=== PATIENT | male | born 1975 | race Caucasian/White ===

== ENCOUNTER 2017-03-10 09:54 | Emergency (ER) | payer MEDICAID ==
--- NOTE | 2017-03-10 10:18 | ED Physician Chart ---
Chief Complaint/HPI - Patient Information Date Seen:: 03/10/17 Time Seen:: 10:08 Chief Complaint:: R hand swelling for 4 days. History of Present Illness:: C/O increasing R hand swelling after he injected himself in R hand with methamphetamine about 4 days ago. No fever. Taking po well without N/V/D. No mentation change. No dyspnea. No other bodily pain or discomfort. Allergies:: Allergies Allergy/AdvReac Type Severity Reaction Status Date / Time No Known Allergies Allergy Verified 03/10/17 10:03 Vitals:: Vital Signs - 8 hr 03/10/17 10:00 Temp 97.3 F HR 110 RR 16 BP 140/91 O2 Sat % 97 Historian:: Patient Family MD/PCP:: Dr. Barajas LMP:: N/A Review:: Nurse's Note Reviewed Review of Systems - Review of Systems General/Constitutional: No fever, No chills, No weight loss, Edema (R hand swelling.), No loss of appetite Skin: No bruising, Other (R hand redness with swelling.) Head: No headache, No light-headedness Eyes: No loss of vision, No pain, No diplopia ENT: No earache, No nasal drainage, No sore throat, No tinnitus Neck: No neck pain, No swelling, No thyromegaly, No stiffness, No mass noted Cardio Vascular: No chest pain, No palpitations, No orthopnea Pulmonary: No SOB, No cough, No sputum, No wheezing GI: No nausea, No vomiting, No diarrhea, No pain G/U: No dysuria, No frequency, No hematuria Musculoskeletal: Other (R hand pain with erythema and swelling for 4 days.) Endocrine: No polyuria, No polydipsia Psychiatric: Prior psych history, No depression, No anxiety, No suicidal ideation, No homicidal ideation, No auditory hallucination, No visual hallucination Hematopoietic: No bruising, No lymphadenopathy Allergic/Immuno: No urticaria, No angioedema Neurological: No syncope, No focal symptoms, No weakness, No paresthesia, No headache, No seizure, No dizziness, No confusion, No vertigo Past Medical History - Past Medical History Past Medical History: HTN Family History: None Social History: Smoker (one ppd. Pt has been informed about health risks associated with chronic tobacco use and has been advised to stop. Pt has been encourage to enroll in a smoking cessation program. Pt acknowledges understanding.), Alcohol (occasional), Illicit Drug Use (Methamphetamine. Pt has been informed about health risks associated with illicit drug use and has been advised to quit. Pt has been encouraged to enroll in a drug rehab program. Pt acknowledges understanding.), , Other (lives with his significant other.) Employment:: unemployed. Surgical History: None Psychiatricy History: Bipolar Medication: Reviewed Family Medical History - Family Member Mother Other Medical History: denies family medical hx Physical Exam - Physical Examination General/Constitutional: Awake, Well-developed, well-nourished, Alert, No distress, GCS 15, Non-toxic appearing, Ambulatory Other Gen/Cons comments:: Breathes comfortably, speaks clearly, interacts normally, and ambulates without assistance without difficulty. Head: Atraumatic Eyes: Lids, conjuctiva normal, PERRL, EOMI Skin: Well hydrated, No lymphadenopathy Other Skin comments:: see also Extremities exam ENMT: External ears, nose nl, Nasal exam nl, Lips, teeth, gums nl, Oropharynx nl , Tonsils nl Neck: Nontender, Full ROM w/o pain, No JVD, No nuchal rigidity, No mass, No stridor Respiratory: Nl effort/Exclusion, Clear to Auscultation, No Wheeze/Rhonchi/Rales Cardio Vascular: RRR (with HR 97), No murmur, gallop, rubs, NL S1 S2 GI: No tenderness/rebounding/guarding, No organomegaly, Normal BS's, Nondistended Other GI comments:: Obese but soft. Other Extremities comments:: RUE: R hand shows diffuse edema with marked erythema and warmth in thenar eminence. No crepitus. There is two injection colvin in thenar eminence with one shows superficial ulceration with dry scab. No exudate. ROM of all joints are limited due to swelling. No detectable motor/sensory/vascular deficit. Good distal capillary refill in all digits. No cyanosis. Neuro/Psych: Alert/oriented (oriented x 3.), Judgement/insight normal, Mood normal, Normal gait, No focal deficits ED Septic Shock - . Is Septic Shock (SBP<90, OR Lactate>4 mmol\L) present?: No - <6hrs of presentation: Vital Signs: Vital Signs - 8 hr 03/10/17 10:00 Temp 97.3 F HR 110 RR 16 BP 140/91 O2 Sat % 97 Reassessment (Disposition) - Reassessment Reassessment:: 1135 Discussed with pt at length regarding his clinical findings that are consistent with R hand infection with marked edema that may eventually affect his R hand function and circulation. Pt needs R hand X-ray, labs, antibiotic therapy and evaluation by a hand surgeon. Pt is alert and oriented x 3. Knowing that there is no hand surgeon in this hospital, pt decided to sign out AMA and preferred to go to another hospital immediately with his girlfriend to be treated for his condition. Indications, benefits for in hospital treatment, as well as related risks, including risks for signing out AMA, had been well explained to pt. Pt acknowledged understanding but still chose to leave AMA and signed AMA form, witnessed by my nurse Cecilia. Pt was informed that if he changes his mind, he is welcomed to return here anytime for further evaluation and management. Pt acknowledged understand and appreciated our effort in caring for him. - Diagnosis Diagnosis:: R hand infection with early compartmental syndrome, stable. - Patient Disposition Discharge/Transfer:: Against Medical Advice Time:: 11:35 Condition at Disposition:: Stable ED Discharge Plan - Patient Disposition Admit/Discharge/Transfer: AGAINST MEDICAL ADVICE Condition at Disposition: Stable
== END 2017-03-10 11:33 | disposition left against medical advice (07) ==
LOC: ER 09:54
DX: T79.A11A Traumatic compartment syndrome of right upper extremity, initial encounter (principal); I10 Essential (primary) hypertension; F17.210 Nicotine dependence, cigarettes, uncomplicated; X58.XXXA Exposure to other specified factors, initial encounter
CPT/HCPCS: Z7502

== ENCOUNTER 2018-10-18 13:55 | Emergency (ER) | payer MEDICAID ==
--- NOTE | 2018-10-18 14:47 | ED Physician Chart ---
ED Chief Complaint/HPI - Patient Information Date Seen:: 10/18/18 Time Seen:: 14:42 Chief Complaint:: LACERATED LEFT INDEX FINGER History of Present Illness:: THIS IS A 43 YR OLD MALE WHO IS CONCERNED ABOUT THE BLEEDING FROM A CUT FINGER TIP SUSTAINED WHILE WORKING AT HOME THIS AM. Allergies:: Allergies Allergy/AdvReac Type Severity Reaction Status Date / Time No Known Allergies Allergy Verified 03/10/17 10:03 Vitals:: Vital Signs - 8 hr 10/18/18 10/18/18 14:04 14:31 Temp 98.3 F 98.3 F HR 100 100 RR 16 16 BP 132/95 132/95 O2 Sat % 98 98 Historian:: Medical Records Review:: Nurse's Note Reviewed ED Review of Systems - Review of Systems General/Constitutional: No fever, No chills, No weight loss, No weakness, No diaphoresis, No edema, No loss of appetite Skin: No skin lesions, No rash, No bruising Head: No headache, No light-headedness Eyes: No loss of vision, No pain, No diplopia ENT: No earache, No nasal drainage, No sore throat, No tinnitus Neck: No neck pain, No swelling, No thyromegaly, No stiffness, No mass noted Cardio Vascular: No chest pain, No palpitations, No PND, No orthopnea, No edema Pulmonary: No SOB, No cough, No sputum, No wheezing GI: No nausea, No vomiting, No diarrhea, No pain, No melena, No hematochezia, No constipation, No hematemesis G/U: No dysuria, No frequency, No hematuria Musculoskeletal: No bone or joint pain, No back pain, No muscle pain, Other ( CUT LEFT INDEX FINGER) Endocrine: No polyuria, No polydipsia Psychiatric: No prior psych history, No depression, No anxiety, No suicidal ideation Hematopoietic: No bruising, No lymphadenopathy Allergic/Immuno: No urticaria, No angioedema Neurological: No syncope, No focal symptoms, No weakness, No paresthesia, No headache, No seizure, No dizziness, No confusion, No vertigo ED Past Medical History - Past Medical History Obtainable: Yes Past Medical History: No significant medical hx Family History: None Social History: Non Smoker, No Alcohol, No Drug Use, Employed Surgical History: None Psychiatricy History: None Medication: Reviewed Family Medical History - Family Member Mother History Unknown: Yes Hx Family Cancer: No Hx Family Coronary Artery Disease: No Hx Family Congestive Heart Failure: No Hx Family Diabetes: No Hx Family Seizures: No Hx Family AIDS: No Hx Family Psychiatric Problems: No ED Physical Exam - Physical Examination Other Extremities comments:: LEFT DISTAL INDEX FINGER SUPERFICIAL LACERATION(1/2 CM WITH NORMAL CIRCULATORY, SENSORY AND ROM. ED Assessment - Assessment General Assessment: LACERATED FINGER THE LACERATION DOES NOT REQUIRE SUTURES AND DRESSED WITH STIRI STRIP AND A BANDAID ED Septic Shock - . Is Septic Shock (SBP<90, OR Lactate>4 mmol\L) present?: No - <6hrs of presentation: Vital Signs: Vital Signs - 8 hr 10/18/18 10/18/18 14:04 14:31 Temp 98.3 F 98.3 F HR 100 100 RR 16 16 BP 132/95 132/95 O2 Sat % 98 98 ED Reassessment (Disposition) - Reassessment Reassessment Condition:: Improved - Diagnosis Diagnosis:: LACERATION OF THE LEFT INDEX FINGER. - Aftercare/Follow up Instructions Aftercare/Follow-Up Instructions:: Counseled pt regarding lab results/diagnosis & need follow up, Refer to Discharge Instructions, Counseled pt & family regarding lab results/diagnosis & need follow up Medication Prescribed:: [id number] - Patient Disposition Discharge/Transfer:: Home Condition at Disposition:: Improved
== END 2018-10-18 15:26 | disposition home or self-care (01) ==
LOC: ER 13:55
DX: S61.211A Laceration without foreign body of left index finger without damage to nail, initial encounter (principal); W45.8XXA Other foreign body or object entering through skin, initial encounter; Y93.89 Activity, other specified; Y92.89 Other specified places as the place of occurrence of the external cause; Y99.8 Other external cause status
CPT/HCPCS: Z7502

== ENCOUNTER 2019-05-22 08:09 | Emergency (ER) | payer MEDICAID ==
[2019-05-22] MEDS ORDERED: Sodium Chloride 0.9% 1,000 ML IV ONE (08:23)
--- NOTE | 2019-05-22 08:28 | ED Physician Chart ---
ED Chief Complaint/HPI - Patient Information Date Seen:: 05/22/19 Time Seen:: 08:10 Chief Complaint:: Flank Pain History of Present Illness:: onset x 3 hours [employer] of [employer], intermittent right flank pain; pt denies trauma, H /As, neck pain, C/P, SOB, Abd. Pain, A/N/V/D/C, fever, chills, or urinary s/s; pt is eating and urinating well; pt last urinated one hour [employer] Allergies:: Allergies Allergy/AdvReac Type Severity Reaction Status Date / Time No Known Allergies Allergy Verified 05/22/19 08:16 Vitals:: Vital Signs - 8 hr 05/22/19 08:10 Temp 97.9 F HR 84 RR 20 BP 161/115 O2 Sat % 97 Historian:: Patient Review:: Nurse's Note Reviewed, Old Chart Reviewed ED Review of Systems - Review of Systems General/Constitutional: No fever, No chills, No weight loss, No weakness, No diaphoresis, No edema, No loss of appetite Skin: No skin lesions, No rash, No bruising Head: No headache, No light-headedness Eyes: No loss of vision, No pain, No diplopia ENT: No earache, No nasal drainage, No sore throat, No tinnitus Neck: No neck pain, No swelling, No thyromegaly, No stiffness, No mass noted Cardio Vascular: No chest pain, No palpitations, No PND, No orthopnea, No edema Pulmonary: No SOB, No cough, No sputum, No wheezing GI: Nausea, Vomiting, Diarrhea, Pain, No melena, No hematochezia, No constipation, No hematemesis G/U: No dysuria, No frequency, No hematuria, No nacturia Musculoskeletal: No bone or joint pain, No back pain, No muscle pain Endocrine: No polyuria, No polydipsia Psychiatric: No prior psych history, No depression, No anxiety, No suicidal ideation, No homicidal ideation, No auditory hallucination, No visual hallucination Hematopoietic: No bruising, No lymphadenopathy Allergic/Immuno: No urticaria, No angioedema Neurological: No syncope, No focal symptoms, No weakness, No paresthesia, No headache, No seizure, No dizziness, No confusion, No vertigo ED Past Medical History - Past Medical History Obtainable: Yes Past Medical History: Other (renal calculi) Family History: HTN Social History: Non Smoker, No Alcohol, No Drug Use, Single Surgical History: None Psychiatricy History: None Medication: Reviewed Family Medical History - Family Member Mother History Unknown: Yes Hx Family Cancer: No Hx Family Coronary Artery Disease: No Hx Family Congestive Heart Failure: No Hx Family Diabetes: No Hx Family Seizures: No Hx Family AIDS: No Hx Family Psychiatric Problems: No ED Physical Exam - Physical Examination General/Constitutional: Awake, Well-developed, well-nourished, Alert, No distress, GCS 15, Non-toxic appearing, Ambulatory Head: Atraumatic Eyes: Lids, conjuctiva normal, PERRL, EOMI Skin: Nl inspection, No rash, No skin lesions, No ecchymosis, Well hydrated, No lymphadenopathy ENMT: External ears, nose nl, TM canals nl, Nasal exam nl, Lips, teeth, gums nl , Oropharynx nl, Tonsils nl Neck: Nontender, Full ROM w/o pain, No JVD, No nuchal rigidity, No bruit, No mass, No stridor Other Neck comments:: supple; no meningeal signs; no cervical tenderness; no bruits Respiratory: Nl effort/Exclusion, Clear to Auscultation, No Wheeze/Rhonchi/Rales Cardio Vascular: RRR, No murmur, gallop, rubs, NL S1 S2, Carotid/Femoral/Distal pulses equal bilaterally GI: No tenderness/rebounding/guarding, No organomegaly, No hernia, Normal BS's, Nondistended, No mass/bruits, No McBurney tenderness, Rectum exam nl Other GI comments:: no pulsatile masses : No CVA tenderness Extremities: No tenderness or effusion, Full ROM, normal strength in all extremities, No edema, Normal digits & nails Neuro/Psych: Alert/oriented, DTR's symmetric, Normal sensory exam, Normal motor strength, Judgement/insight normal, Mood normal, Normal gait, No focal deficits Other Neuro/Psych comments:: no focal signs Misc: Normal back, No paraspinal tenderness ED Labs/Radiology/EKG Results - Lab Results Comments:: Reviewed - Radiology Results Comments:: + 3.5mm distal right ureteral calculus; mild right hydronephrosis ED Septic Shock - . Is Septic Shock (SBP<90, OR Lactate>4 mmol\L) present?: No - <6hrs of presentation: Vital Signs: Vital Signs - 8 hr 05/22/19 08:10 Temp 97.9 F HR 84 RR 20 BP 161/115 O2 Sat % 97 ED Reassessment (Disposition) - Reassessment Reassessment:: Final BP: 128/86; pt refused admission and chose to sign out AMA; pt tolerated po fluids well in ER; pt is asymptomatic upon discharge/AMA Reassessment Condition:: Improved - Diagnosis Diagnosis:: Flank Pain; Right Ureterolithiasis; Hypertension; Ureteral Calculus - Aftercare/Follow up Instructions Aftercare/Follow-Up Instructions:: Counseled pt regarding lab results/diagnosis & need follow up, Refer to Discharge Instructions, Counseled pt & family regarding lab results/diagnosis & need follow up Notes:: Have Blood Pressure re-checked in one day by PMD; X-rays Instructions Medication Prescribed:: Urine Strainer: Strain all Urine; encourage fluids - Patient Disposition Discharge/Transfer:: Against Medical Advice Condition at Disposition:: Stable, Improved (RTER prn if existing s/s reoccur and/or get worse and/or any other new s/s occur; ACIs given for all above Dx; Refer to Urologist/Investigative Shopper SABINE; F/U with PMD Today or prn; RTER prn if concerned)
[2019-05-22 08:42] LABS: HEMATOCRIT 47.2 % (41.0-60); HEMOGLOBIN 15.9 gm/dL (12-16); MEAN CELL VOLUME 87.4 fl (80-99); MEAN CORPUSCULAR HEMOGLOBIN 29.5 pg (26.0-30.0); MEAN CORPUSCULAR HGB CONC 33.8 pg (28.0-36.0); PLATELET COUNT 214 Th/cmm (150-400); RED CELL DISTRIBUTION WIDTH 12.8 % (11.5-20.0); WHITE BLOOD COUNT 11.3 Th/cmm (4.8-10.8)
[2019-05-22 08:57] LABS: AMYLASE SERUM 48 U/L (29-103); ANION GAP 11.8 (7.0-16.0); BUN - UREA NITROGEN 13 mg/dL (7-25); CALCIUM SERUM 9.2 mg/dL (8.6-10.3); CARBON DIOXIDE 25.9 mEq/L (21.0-31.0); CHLORIDE 104 mEq/L (98-107); GFR AFRICAN-AMERICAN > 60.0 ml/min (>90); GFR NON AFRICAN-AMERICAN > 60.0 ml/min; GLUCOSE 116 mg/dL (70-105); LIPASE 27 U/L (11-82); POTASSIUM SERUM 3.7 mEq/L (3.5-5.1); SODIUM SERUM 138 mEq/L (136-145)
--- NOTE | 2019-05-22 08:57 | Diagnostic Imaging Report ---
CT scan abdomen and pelvis without intravenous contrast. HISTORY: Pain Total DLP equals 571 CTDI equals 11.6 The liver is somewhat generous in size. No focal lesions. The spleen appears normal. No focal amenities seen within the pancreas. There is moderate hydronephrosis involving the right renal collecting system with dilatation of the right ureter. This is associated with an approximate 3.5 mm calculus in the distal ureter near the ureterovesical junction. Preservation of normal fat planes within the pelvis. No abnormal soft tissue masses or abnormal fluid collections. No bowel dilatation. IMPRESSION: 1. 3.5 mm calculus within the distal right ureter near the ureterovesical junction associated with mild right-sided hydronephrosis
[2019-05-22 09:36] LABS: BAND NEUTROPHILE 1 % (0-10); LYMPHOCYTE 22 % (20-50); MONOCYTE 8 % (2-10); NEUTROPHILS 68 % (40-80)
[2019-05-22 09:37] LABS: BASOPHIL 0 % (0-3); EOSINOPHIL 1 % (0-5)
== END 2019-05-22 10:25 | disposition left against medical advice (07) ==
LOC: ER 08:09
DX: N20.1 Calculus of ureter (principal); I10 Essential (primary) hypertension
CPT/HCPCS: 99284; 96374; 96375; 74176; 84484; 36415; 85007; 85025; 82150; 83690; 80048; J1885; J2405; J7030